=== PATIENT | male | born 1990 | race Caucasian/White ===

== ENCOUNTER 2017-09-29 01:20 | Emergency (ER) | payer OTHER ==
[~2017-09-29] VITALS: Ht 182.9 cm; Wt 122.5 kg
[2017-09-29] MEDS ORDERED: IBUPROFEN 600 MG TABLET. PO ONE (02:00)
[2017-09-29] MEDS ORDERED: IBUPROFEN 800 MG TABLET. PO ONE ×2 (02:00→02:11)
--- NOTE | 2017-09-29 02:17 | PHYS DOC ---
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 No prior injuries to this foot no chronic bone or bleeding problems. Injury was just prior to arrival. Mild discomfort with weightbearing and range of motion of the mid foot Review of Systems Review of Systems Constitutional: Denies fever or chills [] Eyes: Denies change in visual acuity, redness, or eye pain [] HENT: Denies nasal congestion or sore throat [] Respiratory: Denies cough or shortness of breath [] Cardiovascular: No additional information not addressed in HPI [] GI: Denies abdominal pain, nausea, vomiting, bloody stools or diarrhea [] : Denies dysuria or hematuria [] Musculoskeletal: Denies back pain or joint pain [] Integument: Denies rash or skin lesions [] Neurologic: Denies headache, focal weakness or sensory changes [] Endocrine: Denies polyuria or polydipsia [] All other systems were reviewed and found to be within normal limits, except as documented in this note. Current Medications Current Medications Current Medications Medications (Trade) Dose Ordered Sig/Feliciano Start Time Stop Time Status Last Admin Dose Admin Ibuprofen (Motrin) 800 mg 1X ONCE 09/29/17 02:00 09/29/17 02:01 UNV Physical Exam Physical Exam Patient with mild swelling on the left foot dorsum. No bony tenderness ecchymosis or deformity. Mild soft tissue tenderness only. Normal range of motion of toes foot and ankle. No proximal tib-fib discomfort or tenderness Constitutional: Well developed, well nourished, no acute distress, non-toxic appearance. [] HENT: Normocephalic, atraumatic, bilateral external ears normal, oropharynx moist, no oral exudates, nose normal. [] Eyes: EOMI, conjunctiva normal, no discharge. [] Neck: Normal range of motion, no tenderness, supple, no stridor. [] Cardiovascular: No tachycardia Lungs & Thorax: Normal respiratory rate with no asymmetry of the chest wall excursion and no increased work of breathing Abdomen: Nondistended abdomen Skin: Warm, dry, no erythema, no rash. [] Back: Normal supple appearing neck Extremities: no cyanosis, no clubbing, ROM intact, no edema. [] Neurologic: Alert and oriented X 3, normal motor function, normal sensory function, no focal deficits noted. [] Psychologic: Affect normal, judgement normal, mood normal. [] EKG EKG [] Radiology/Procedures Radiology/Procedures X-ray left foot negative for fracture or dislocation interpreted by me[] Course & Med Decision Making Course & Med Decision Making Pertinent Labs and Imaging studies reviewed. (See chart for details) Signs and symptoms consistent with left foot sprain. X-ray unremarkable. Heart sole shoe applied after Aj bandage. Patient were rest ice elevate weight-bear as tolerated and follow-up with his Workmen's Compensation physician for reevaluation referral to orthopedics as needed [] Dragon Disclaimer Dragon Disclaimer This electronic medical record was generated, in whole or in part, using a voice recognition dictation system. Departure Departure: Impression: Primary Impression: Sprain of foot, left Disposition: 01 HOME, SELF-CARE Condition: IMPROVED Referrals: PCP,NO (PCP) Patient Instructions: Foot Sprain Additional Instructions: You've suffered a sprain of your left foot. Rest, apply ice, and elevate above your heart whenever possible over the next day or 2. Wear hard sole shoe for support until your symptoms have resolved. Follow-up with workman's comp in several days for reevaluation and referral to orthopedics as needed. Observe light duty without strenuous use of the foot until cleared by your Workmen's Comp. physician LELE BUTLER MD September 29, 2017 02:16
[2017-09-29 02:28] VITALS: BP 146/84
--- NOTE | 2017-09-29 08:03 | RAD ---
Left foot 3 views. HISTORY: Left foot injury, pain mid foot 3 views were taken of the left foot. There is not evidence of an acute fracture or osseous abnormality. IMPRESSION: 1. No fracture noted in the left foot. Electronically signed by: Jordan Wilcox MD (09/29/2017 7:59 AM) [facility]
--- NOTE | 2017-09-29 08:03 | RAD ---
Left ankle 3 views. HISTORY: Injury, ankle and foot pain, twisted in pothole Left ankle 3 views of the left ankle show no evidence of an acute fracture or osseous abnormality. IMPRESSION: 1. Negative left ankle. Electronically signed by: Jordan Wilcox MD (09/29/2017 8:00 AM) [facility]
== END 2017-09-29 02:28 | disposition home or self-care (01) ==
LOC: ER 01:20
DX: S93.602A Unspecified sprain of left foot, initial encounter (principal); W22.8XXA Striking against or struck by other objects, initial encounter; Y93.89 Activity, other specified; Y99.8 Other external cause status; Y92.89 Other specified places as the place of occurrence of the external cause
CPT/HCPCS: 73610; 73630; 99284